=== PATIENT | female | born 1985 | race Two or more races ===

== ENCOUNTER 2023-05-06 16:55 | Emergency (ER) | payer OTHER ==
[~2023-05-06] VITALS: Ht 152.4 cm; Wt 81.6 kg
[2023-05-06] MEDS ORDERED: ANTIVERT25 M2 PO (17:00)
== END 2023-05-06 21:02 | disposition home or self-care (01) ==
LOC: ER 16:55 → EDBD 17:45 → ER 21:02
DX: H81.10 Benign paroxysmal vertigo, unspecified ear (principal); Z88.6 Allergy status to analgesic agent; Z88.0 Allergy status to penicillin